=== PATIENT | female | born 1935 | race Caucasian/White ===

== ENCOUNTER 2018-06-06 11:34 | Inpatient (IN) ==
[2018-06-06] MEDS ORDERED: Mag Hydrox/Al Hydrox/Simeth 30 ML UDC PO PRN (18:38)
[2018-06-06] MEDS ORDERED: *HR* Dextrose 50 % in Water (Syg) 50 ML SYRINGE IVP PRN (19:41)
[2018-06-06] MEDS ORDERED: D5% in Water 1,000 ML IVC PRN (19:41)
[2018-06-06] MEDS ORDERED: Dextrose Gel 15 GM/37.5 ML TUBE PO PRN ×2 (19:41)
[2018-06-06] MEDS ORDERED: Insulin DETEMIR 100 UNIT/ML per UNIT SQ ONE (21:00)
[2018-06-06] MEDS: Insulin LISPRO 300 UNITS/3 ML VIAL SQ SCH (22:18)
[2018-06-07] MEDS: cloNIDine HCl 0.1 MG TABLET PO PRN (00:16)
[2018-06-07] MEDS: *HR* Enoxaparin 40 MG/0.4 ML SYRINGE SQ SCH (06:03)
[2018-06-07 06:25] LABS: Basophils % 0.3 %; Eosinophils # 0.2 K/mcL (0.0-0.6); Eosinophils % 3.5 %; Hematocrit 29.6 % (35.3-44.9); Immature Granulocytes % 0.3 % (0-4); Lymphocytes # 2.2 K/mcL (0.6-4.6); Lymphocytes % 36.7 %; Mean Corpuscular HGB Conc 33.8 g/dL (31.6-35.5); Mean Corpuscular Hemoglobin 30.4 pg (28.0-33.3); Mean Platelet Volume 10.7 fL (9.4-12.4); Monocytes # 1.2 K/mcL (0.0-1.3); Monocytes % 19.3 %; Neutrophils # 2.4 K/mcL (1.6-8.9); Platelet Count 220 K/mcL (140-400); Prothrombin Time 11.6 Seconds (9.4-12.1); Red Blood Count 3.29 M/mcL (3.82-4.97); Red Cell Distribution Width 12.3 % (11.5-14.5); Segmented Neutrophils % 39.9 %
[2018-06-07 06:38] LABS: Alanine Aminotransferase 19 Units/L (7-52); Albumin 3.2 g/dL (3.5-5.7); Albumin/Globulin Ratio 1.5 (1.1-2.2); Alkaline Phosphatase 34 Units/L (34-104); Aspartate Amino Transferase 23 Units/L (13-39); BUN/Creatinine Ratio 16 (6-26); Bilirubin,Total 0.3 mg/dL (0.3-1.0); Blood Urea Nitrogen 11 mg/dL (8-23); Calcium 8.8 mg/dL (8.6-10.3); Carbon Dioxide 28 mEq/L (23-29); Chloride 110 mEq/L (98-107); Globulin 2.2 g/dL (2.4-3.5); Glucose 64 mg/dL (70-105); Osmolality,Calculated 291 (280-300); Potassium 4.1 mEq/L (3.5-5.1); Sodium 142 mEq/L (136-145); Total Protein 5.4 g/dL (6.4-8.9); eGFR For Non-African Americans > 60 (> 60)
[2018-06-07] MEDS: Insulin LISPRO 300 UNITS/3 ML VIAL SQ SCH ×4 (08:13→21:35)
--- NOTE | 2018-06-07 12:58 | Internal Med History&Physical ---
Addendum entered and electronically signed by Julio Anne MD 06/07/18 13:50: I have personally performed a face to face evaluation on this patient. I have re viewed and agree with the care plan. History and Exam by me shows: Reviewed H&P with the patient. She was found, hypothermic, at home. However, she is unaware as to how she got outside. She has wounds on her left elbow and left lateral malleolus which will need care. She has a history of fall, outside of working a lot, about 4 years ago which required right total hip replacement. 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 She states that her mother had the same problem. She denies significant nephropathy or peripheral neuropathy although she is just now beginning to get some numbness in her feet. She is followed with an eye center in [place] for 10 years but they offer no hope of surgical or medical change. She had a "scan" of her heart which was normal at the hospital from which she was transferred. She is greatly encouraged by this. She lives 1 mile from her son and several miles from her daughter but otherwise lives alone. Her neighbor brings her warm food once a day. In addition, she has another person stops by daily to check her sugar and give her her insulin injection, depending on sliding scale. She is unable to check her sugar, on her own. She is status post total hysterectomy, as above. 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 Patient has no complaint of chest discomfort, dyspnea, orthopnea, breathing p roblems, palpitations, nausea or vomiting, constipation or diarrhea, other changes in bowel habits, heartburn, difficulty with urination, kidney problems or kidney stones, fevers chills or sweats, rash or itching, seizures, headache or lightheadedness, heat or cold intolerance, blood problems or anemia, or other new complaints, except as mentioned above. Review of systems is otherwise negative. Examination: (Except as mentioned above): General: In no apparent distress, alert and oriented 3. Head: Atraumatic and normocephalic. Eyes: Extraocular muscles are intact, pupils equal round and reactive to light and accommodation. It should be noted that she has inability to fingers at about 1 foot. Sclerae anicteric. Ears: External ears are normal to inspection and hearing is grossly normal. Nose: Patent without lesion noted. Mouth: No intraoral lesions seen. She is edentulous with upper and lower full plate dentures. Neck: Supple with trachea midline. There is no thyromegaly or adenopathy and carotids are 2+ without bruit heard. Respiratory: No use of accessory muscles. Lungs are clear throughout. Normal airflow. 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 Cardiovascular: Regular rate and rhythm without murmur appreciated. Abdomen: Bowel sounds are normal. No hepatosplenomegaly masses or tenderness. Obese and therefore difficult to palpate deeply. Extremities: No cyanosis clubbing or edema. Neurological: A and O 3. Cranial nerves II through XII are intact. No focal deficits and no abnormal movements or postures. Skin: Warm and non-diaphoretic with no lesions noted. Breasts, pelvic and rectal: Not examined. I am concerned about safety at home. Apparently, she has not been able to modify her house, adequately. Therapy is aware of the situation and will assess her for safety, considering whether she needs 24/7 attendance or even fpc placement. Original Note: Date of Encounter: 06/07/18 Time of Encounter: 12:56 Assessment and Plan (1) Falls Current visit: Yes Status: Acute PT and OT to eval and treat. Will follow progress. Qualifiers: Encounter type: sequela Qualified Code(s): W19.XXXS - Unspecified fall, sequela (2) Anemia Current visit: Yes Status: Acute Hemoglobin 10.0. Will continue to try and labs. Qualifiers: Anemia type: unspecified type Qualified Code(s): D64.9 - Anemia, unspecified (3) Diabetes mellitus Current visit: Yes Status: Chronic Controlled with insulin. Monitor fingerstick blood sugar. Continue diabetic diet. Qualifiers: Diabetes mellitus type: type 2 Diabetes mellitus intermediate designer insulin use: with intermediate designer use Diabetes mellitus complication status: with ophthalmic complications Diabetes mellitus complication detail: with diabetic retinopathy Diabetic retinopathy severity: with unspecified retinopathy severity Diabetes mellitus macular edema: macular edema presence unspecified Laterality: bilateral Qualified Code(s): E11.319 - Type 2 diabetes mellitus with unspecified diabetic retinopathy without macular edema; Z79.4 - [facility] (current) use of insulin Internal Medicine - H&P: HPI Admitted From: Hospital to Hospital Transfer Plans for Post Hospital Care: Home History of present illness: Ms. Coto is a 83 year old female admitted to rehab unit from [facility]. Patient presented to [facility] after falling outside of her home in becoming hypothermic. Patient does not recall what led to the fall. Patient is legally blind due to diabetic retinopathy. She follows up with [facility] [facility] regularly. Patient lives at home alone that has a son that lives nearby. Patient is diabetic and takes insulin. Had right hip fracture in 2013 after a fall. Complains of slight neck and right shoulder pain. Denies fever, chills, nausea vomiting or diarrhea. Denies shortness of breath or chest pain. Maintaining appetite and hydration states bowels moved moved yesterday. Past Med Surg Social Fam HX - Past Medical History Medical history: diabetes, hyperlipidemia, hypertension Additional medical history: legally blind Psychiatric history: anxiety, depression - Past Surgical History Surgical History: hysterectomy Additional surgical history: RTHR - Social History Smoking Status: Never smoker Smokeless Tobacco Status: No Alcohol use: none Drug use: none - Family History Mother Adopted: No Family Member Ethnicity: Non- Living Status: Hx Family Cardiac Disorders: Yes Hx Family Respiratory Disorders: No Hx Family Cancer: No Hx Family GI Disorders: No Hx Family Endocrine Disorder: Yes (DM ) Hx Family Neuromuscular Disorders: No Hx Family Neurologic Disorders: No Hx Family HEENT Disorders: No Hx Family Autoimmune Disorders: No Father Adopted: No Family Member Ethnicity: Non- Living Status: Hx Family Cardiac Disorders: No Hx Family Respiratory Disorders: Yes (emphysema) Hx Family Cancer: No Hx Family GI Disorders: No Hx Family Endocrine Disorder: No Hx Family Neuromuscular Disorders: No Hx Family Neurologic Disorders: No Hx Family HEENT Disorders: No Hx Family Autoimmune Disorders: No Internal Medicine - H&P: Meds Brimonidine Tartrate/Timolol [Combigan 0.2%-0.5% Eye Drops] 1 drop BOTH EYES BID 04/17/17 [History] Cyclosporine [Restasis] 1 drop BOTH EYES BID 04/17/17 [History] Allergy/AdvReac Type Severity Reaction Status Date / Time Sulfa (Sulfonamide AdvReac Gastrointestinal Verified 04/16/17 10:47 Antibiotics) Upset All Systems PM: A 10-system review of systems was performed and is negative for pertinent findings except as documented above in the HPI. - Constitutional Constitutional: no chills, no fever(s), no night sweats - EENT Eyes: no change in vision, no discharge, no pain, no photophobia Ears: no ear discharge, no ear pain, no tinnitus Nose, mouth and throat: no dysphagia, no nasal discharge, no neck pain, no sore throat - Cardiovascular Cardiovascular ROS IM: no chest pain, no diaphoresis, no dyspnea, no l ightheadedness, no palpitations, no syncope - Respiratory Respiratory: no cough, no dyspnea, no wheezing, no excessive phlegm production - Gastrointestinal Gastrointestinal: no abdominal pain, no diarrhea, no hematemesis, no hematochezia, no melena, no nausea, no vomiting - Genitourinary Genitourinary: no change in urinary stream, no dysuria, no flank pain, no hematuria - Musculoskeletal Musculoskeletal ROS IM: no numbness, no tingling - Integumentary Integumentary IM: no rash, no unusual bruising - Neurological Neurological ROS: no confusion, no convulsions, no focal weakness, no numbness, no tingling, no tremor(s) - Hematologic/Lymphatic Hematologic/Lymphatic: no easy bruising - Constitutional Vitals: Temp Pulse Resp BP Pulse Ox 97.5 F L 65 14 162/68 98 06/07/18 08:00 06/07/18 11:03 06/07/18 11:03 06/07/18 11:03 06/07/18 11:03 General appearance: Present: cooperative, A&O X 3, pleasant, no acute distress, answers questions appropriately Exam: legally blind - Head Head exam: Present: atraumatic, normocephalic - Eye Eye exam: Present: PERRL, conjuntiva pink, sclera anicteric Pupils: Present: PERRL - Neck Neck exam general surgery: Present: supple, trachea midline. Absent: lymphadenopathy - Respiratory Respiratory exam: Present: CTAB. Absent: accessory muscle use, rales, rhonchi, wheezes - Cardiovascular Cardiovascular exam: Present: RRR, +S1, +S2. Absent: diastolic murmur, gallop, rubs, systolic murmur - GI/Abdominal GI/Abdominal exam: Present: normal bowel sounds, soft, no peritoneal signs. Absent: distended, tenderness - Extremities Exam Extremities exam: Present: warm, radial pulses palpable and symmetrical. Absent: calf tenderness, cyanotic, pedal edema - Neurological Exam Neurological exam: Present: CN II-XII intact, oriented X3, no focal deficits. Absent: pronater drift, facial droop, speech deficit - Skin Skin exam: Present: dry, intact Additional comments: Left lateral malleolus left elbow wounds. Healing. No drainage. Dressings dry and intact Internal Med - H&P Results - Labs CBC & Chem 7: 06/07/18 05:55 06/07/18 05:55 Labs: Short CBC 06/07/18 Range/Units 05:55 WBC 6.0 (4.3-11.1) K/mcL Hgb 10.0 L (11.5-15.4) g/dL Hct 29.6 L (35.3-44.9) % Plt Count 220 (140-400) K/mcL Neutrophils # 2.4 (1.6-8.9) K/mcL BMP 06/07/18 05:55 Sodium 142 Potassium 4.1 Chloride 110 H Carbon Dioxide 28 BUN 11 Creatinine 0.67 Glucose 64 L Calcium 8.8 Liver Function 06/07/18 Range/Units 05:55 Total Bilirubin 0.3 (0.3-1.0) mg/dL AST 23 (13-39) Units/L ALT 19 (7-52) Units/L Alkaline Phosphatase 34 (34-104) Units/L Albumin 3.2 L (3.5-5.7) g/dL
[2018-06-07] MEDS: Insulin DETEMIR 100 UNIT/ML X5UNITS SQ SCH (21:35)
[2018-06-08] MEDS: *HR* Enoxaparin 40 MG/0.4 ML SYRINGE SQ SCH (04:40)
[2018-06-08] MEDS: Insulin LISPRO 300 UNITS/3 ML VIAL SQ SCH ×4 (08:11→22:40)
--- NOTE | 2018-06-08 10:31 | Internal Med Progress Note ---
Addendum entered and electronically signed by Julio Anne MD 06/08/18 11:20: I have personally performed a face to face evaluation on this patient. I have r eviewed and agree with the care plan. History and Exam by me shows: Patient is very teary-eyed and upset because she had a bad night, last night. She states that she had to urinate frequently and this has made her sleepy and tired, today. She feels like she cannot perform well in therapy. She has been told by staff that this is diabetes and its complications and she is depressed because she cannot care for herself, the way she has. Talked at length and I encouraged her to do the best she can utilize her body is not as young as it used to be and that she must have a positive attitude in order to have her best chances. We discussed living situations with both her daughter and son in [facility] her are good. We told her that we would continue with therapy and that we would work with social service to try to find the best home-going situation for her. She seemed to have a better attitude at the end of this discussion. We will discuss with staff in terms of progress and may need to consider psychology referral. It has been a day or 2 since her last bowel movement. We encouraged her to keep track of this and let us know if she has not had a bowel movement. We will not use an additional laxative, at this point. Discussed care with other providers and/or nursing. Patient has no complaint of chest discomfort, dyspnea, orthopnea, palpitations, nausea or vomiting, constipation or diarrhea, other changes in bowel habits, difficulty with urination, rash or itching, or other new complaints, except as mentioned above. Review of systems is otherwise negative. Examination: (Except as mentioned above): General: In no apparent distress. Alert and oriented 3. Nondiaphoretic. Head: Atraumatic and normocephalic. Respiratory: No use of accessory muscles. Lungs are clear throughout. Normal airflow. Cardiovascular: Regular rate and rhythm without murmur appreciated. Abdomen: Bowel sounds are normal. No hepatosplenomegaly mass or tenderness appreciated. Obese and therefore difficult to palpate deeply. Extremities: No cyanosis clubbing or edema. Skin: Warm and non-diaphoretic with no new lesions noted. Original Note: Date of Encounter: 06/08/18 Time of Encounter: 10:30 - Assessment and plan (1) Diabetes mellitus Current Visit: Yes Status: Chronic Assessment and plan: No acute issues. Patient's glucose was a little elevated at admission but has been fairly well-controlled with fingersticks since her admission day. We will continue with sliding scale insulin and current medication regimen. We will continue with current plan of care Qualifiers: Diabetes mellitus type: type 2 Diabetes mellitus manager intermediate insulin use: with manager intermediate use Diabetes mellitus complication status: with ophthalmic complications Diabetes mellitus complication detail: with diabetic retinopathy Diabetic retinopathy severity: with unspecified retinopathy severity Diabetes mellitus macular edema: macular edema presence unspecified Laterality: bilateral Qualified Code(s): E11.319 - Type 2 diabetes mellitus with unspecified diabetic retinopathy without macular edema; Z79.4 - [facility] (2) Hip fracture Current Visit: Yes Status: Chronic Assessment and plan: No acute issues at this time. Patient denies any pain to her hip. Patient with history of hip replacement in 2013 and has had poor gait and balance, resulting in several falls at home. Patient continues with poor endurance. We will continue with physical therapy Qualifiers: Encounter type: subsequent encounter Fracture type: closed Laterality: right Fracture healing: with routine healing Qualified Code(s): S72.001D - Fracture of unspecified part of neck of right femur, subsequent encounter for closed fracture with routine healing (3) Hypertensive urgency Current Visit: Yes Status: Acute Assessment and plan: Patient continues to have slightly elevated systolic blood pressure was systolic at 165-175. We will start on low-dose Cozaar and continue to monitor. - Time Spent With Patient less than 15 minutes - Subjective Interval history: Patient appears relaxed and currently denies any discomforts or shortness of breath. Patient states that physical therapy is progressing well for her. - Constitutional Vitals: Temp Pulse Resp BP Pulse Ox 98.6 F 73 16 174/86 98 06/08/18 06:59 06/08/18 06:59 06/08/18 06:59 06/08/18 06:59 06/08/18 06:59 General appearance: Present: cooperative, A&O X 3, pleasant, no acute distress, answers questions appropriately - Head Head exam: Present: atraumatic, normocephalic - Eye Eye exam: Present: PERRL, conjuntiva pink, sclera anicteric Pupils: Present: PERRL Additional comments: Patient is legally blind - Neck Neck exam general surgery: Present: supple, trachea midline. Absent: lymphadenopathy - Respiratory Respiratory exam: Present: CTAB. Absent: accessory muscle use, rales, rhonchi, wheezes Additional comments: Lungs are clear throughout upper houser with diminished bases. Respiratory effort appears relaxed - Cardiovascular Cardiovascular exam: Present: RRR, +S1, +S2. Absent: diastolic murmur, gallop, rubs, systolic murmur - GI/Abdominal GI/Abdominal exam: Present: normal bowel sounds, soft, no peritoneal signs. Absent: distended, tenderness - Extremities Exam Extremities exam: Present: warm, radial pulses palpable and symmetrical. Absent: calf tenderness, cyanotic, pedal edema - Neurological Exam Neurological exam: Present: CN II-XII intact, oriented X3, no focal deficits. Absent: pronater drift, facial droop, speech deficit - Skin Skin exam: Present: dry, intact Internal Medicine: Result - Labs CBC & Chem 7: 06/07/18 05:55 06/07/18 05:55 - ABG Interpretation ABG results: PT/INR, D-dimer PT 11.6 Seconds (9.4-12.1) 06/07/18 05:55 Consult Discharge Plan - Plan Referrals: Heriberto Brandon MD [Primary Care Provider] -
[2018-06-08 17:22] LABS: Bilirubin,Urine Negative (Negative); Blood,Urine Trace-lysed (Negative); Clarity,Urine Clear (Clear); Color,Urine Yellow (Yellow); Glucose,Urine (UA) 100 mg/dL (Normal); Ketones,Urine Negative (Negative); Leukocyte Esterase,Urine Small (Negative); Nitrite,Urine Negative (Negative); Protein,Urine 100 mg/dL (Neg-Trace); Urobilinogen,Urine Normal (Normal)
[2018-06-08 17:27] LABS: Squamous Epithelial Cell,Urine Few per lpf (None-Few)
[2018-06-08] MEDS: Insulin DETEMIR 100 UNIT/ML X5UNITS SQ SCH (22:40)
[2018-06-08] MEDS: cloNIDine HCl 0.1 MG TABLET PO PRN (22:41)
[2018-06-09] MEDS: *HR* Enoxaparin 40 MG/0.4 ML SYRINGE SQ SCH (06:06)
[2018-06-09] MEDS: Insulin LISPRO 300 UNITS/3 ML VIAL SQ SCH ×4 (08:48→20:44)
--- NOTE | 2018-06-09 10:42 | Internal Med Progress Note ---
Addendum entered and electronically signed by Julio Anne MD 06/09/18 12:39: I have personally performed a face to face evaluation on this patient. I have r eviewed and agree with the care plan. History and Exam by me shows: Patient has no new complaints. She denies urinary symptoms. She feels like she is progressing well with therapy. Discussed care with other providers and/or nursing. Patient has no complaint of chest discomfort, dyspnea, orthopnea, palpitations, nausea or vomiting, constipation or diarrhea, other changes in bowel habits, difficulty with urination, rash or itching, or other new complaints, except as mentioned above. Review of systems is otherwise negative. Examination: (Except as mentioned above): General: In no apparent distress. Alert and oriented 3. Nondiaphoretic. Head: Atraumatic and normocephalic. Respiratory: No use of accessory muscles. Lungs are clear throughout. Normal airflow. Cardiovascular: Regular rate and rhythm without murmur appreciated. Abdomen: Bowel sounds are normal. No hepatosplenomegaly mass or tenderness appreciated. Obese and therefore difficult to palpate deeply. Patient is examined upright in chair and this also limits exam. Extremities: No cyanosis clubbing or edema. Skin: Warm and non-diaphoretic with no new lesions noted. I discussed at length with patient and daughter, with the patient's permission. The plan is for discharge early to mid next week but she will need supervision constantly because of her fall risk and decreased vision. Both daughter and patient seemed fine with this. oil well services superintendent aware and will look at placement I told daughter that we would probably not have urine culture results back until tomorrow or more likely Tuesday and then these would be addressed, if there is growth. She was recently treated for UTI. Combigan and Restasis eyedrops are used by patient at home but these are not available through [facility]. Social service and nursing will try to arrange a family member or friend to bring from home. Original Note: Date of Encounter: 06/09/18 Time of Encounter: 10:40 - Assessment and plan (1) Diabetes mellitus Current Visit: Yes Status: Chronic Assessment and plan: No acute issues. Patient's glucose continues to have slight elevation during the evening hours greater than 200. Taking for sliding scale coverage and evaluate patient's medication regimen. Qualifiers: Diabetes mellitus type: type 2 Diabetes mellitus terminal clerk insulin use: with terminal clerk use Diabetes mellitus complication status: with ophthalmic complications Diabetes mellitus complication detail: with diabetic retinopathy Diabetic retinopathy severity: with unspecified retinopathy severity Diabetes mellitus macular edema: macular edema presence unspecified Lat erality: bilateral Qualified Code(s): E11.319 - Type 2 diabetes mellitus with unspecified diabetic retinopathy without macular edema; Z79.4 - [facility] use of [facility] (2) Hip fracture Current Visit: Yes Status: Chronic Assessment and plan: No acute issues at this time. Patient denies any pain to her hip. Patient with history of hip replacement in 2013 and has had poor gait and balance, resulting in several falls at home. Patient continues with poor endurance. We will continue with physical therapy Qualifiers: Encounter type: subsequent encounter Fracture type: closed Laterality: right Fracture healing: with routine healing Qualified Code(s): S72.001D - Fracture of unspecified part of neck of right femur, subsequent encounter for closed fracture with routine healing (3) Hypertensive urgency Current Visit: Yes Status: Acute Assessment and plan: Patient blood pressure has been slightly elevated. Patient was started on Cozaar and today her blood pressure appears better controlled. We will continue to monitor - Time Spent With Patient less than 15 minutes - Subjective Interval history: Patient appears relaxed and currently denies any discomforts or shortness of breath. Patient states that physical therapy is progressing well for her. Patient noted to be legally blind. - Constitutional Vitals: Temp Pulse Resp BP Pulse Ox 97.7 F 64 16 146/68 94 06/09/18 06:00 06/09/18 06:00 06/09/18 06:00 06/09/18 06:00 06/09/18 06:00 General appearance: Present: cooperative, A&O X 3, pleasant, no acute distress, answers questions appropriately - Head Head exam: Present: atraumatic, normocephalic - Eye Eye exam: Present: PERRL, conjuntiva pink, sclera anicteric Pupils: Present: PERRL Additional comments: Legally blind - Neck Neck exam general surgery: Present: supple, trachea midline. Absent: lymphadenopathy - Respiratory Respiratory exam: Present: CTAB. Absent: accessory muscle use, rales, rhonchi, wheezes - Cardiovascular Cardiovascular exam: Present: RRR, +S1, +S2. Absent: diastolic murmur, gallop, rubs, systolic murmur - GI/Abdominal GI/Abdominal exam: Present: normal bowel sounds, soft, no peritoneal signs. Absent: distended, tenderness - Extremities Exam Extremities exam: Present: warm, radial pulses palpable and symmetrical. Absent: calf tenderness, cyanotic, pedal edema - Neurological Exam Neurological exam: Present: CN II-XII intact, oriented X3, no focal deficits. Absent: pronater drift, facial droop, speech deficit - Skin Skin exam: Present: dry, intact Internal Medicine: Result - Labs CBC & Chem 7: 06/07/18 05:55 06/07/18 05:55 Labs: Urine 06/08/18 Range/Units 17:00 Urine Color Yellow (Yellow) Urine Clarity Clear (Clear) Urine pH 6.0 (5.0-8.0) pH Units Ur Specific [place] 1.020 (1.010-1.025) Urine Protein 100 H (Neg-Trace) mg/dL Urine Glucose (UA) 100 H (Normal) mg/dL - ABG Interpretation ABG results: PT/INR, D-dimer PT 11.6 Seconds (9.4-12.1) 06/07/18 05:55 Consult Discharge Plan - Plan Referrals: Heriberto Brandon MD [Primary Care Provider] -
[2018-06-09] MEDS: Insulin DETEMIR 100 UNIT/ML X5UNITS SQ SCH (20:45)
[2018-06-09] MEDS: Acetaminophen 325 MG TABLET PO PRN (23:44)
[2018-06-10] MEDS: *HR* Enoxaparin 40 MG/0.4 ML SYRINGE SQ SCH (05:00)
[2018-06-10] MEDS: Insulin LISPRO 300 UNITS/3 ML VIAL SQ SCH ×4 (07:34→20:31)
--- NOTE | 2018-06-10 11:10 | Internal Med Progress Note ---
Date of Encounter: 06/10/18 Time of Encounter: 14:40 - Subjective Interval history: - Assessment and plan (1) Diabetes mellitus Current Visit: Yes Status: Chronic Assessment and plan: No acute issues. better control Taking for sliding scale coverage and evaluate patient's medication regimen. Qualifiers: Diabetes mellitus type: type 2 Diabetes mellitus group home insulin use: with group home use Diabetes mellitus complication status: with ophthalmic complications Diabetes mellitus complication detail: with diabetic retinopathy Diabetic retinopathy severity: with unspecified retinopathy severity Diabetes mellitus macular edema: macular edema presence unspecified Laterality: bilateral Qualified Code(s): E11.319 - Type 2 diabetes mellitus with unspecified diabetic retinopathy without macular edema; Z79.4 - penitentiary (current) use of insulin (2) Hip fracture Current Visit: Yes Status: Chronic Assessment and plan: No acute issues at this time. Patient denies any pain to her hip. Patient with history of hip replacement in 2013 and has had poor gait and balance, resulting in several falls at home. Patient continues with poor endurance. We will continue with physical therapy Qualifiers: Encounter type: subsequent encounter Fracture type: closed Laterality: right Fracture healing: with routine healing Qualified Code(s): S72.001D - Fracture of unspecified part of neck of right femur, subsequent encounter for closed fracture with routine healing (3) Hypertensive urgency Current Visit: Yes Status: Acute Assessment and plan: Patient blood pressure appears better controlled. We will continue to monitor - Time Spent With Patient less than 15 minutes - Subjective Interval history: No acute events overnight Patient is legally blind. - Constitutional General appearance: Present: cooperative, A&O X 3, pleasant, no acute distress, responsive - Head Head exam: Present: atraumatic, normocephalic - Eye Eye exam: Present: PERRL, conjuntiva pink, sclera anicteric Pupils: Present: PERRL Additional comments: Legally blind - Neck Neck exam general surgery: Present: supple, trachea midline. Absent: lymphadenopathy - Respiratory Respiratory exam: Present: CTAB. Absent: accessory muscle use, rales, rhonchi, wheezes - Cardiovascular Cardiovascular exam: Present: RRR, +S1, +S2. Absent: diastolic murmur, gallop, rubs, systolic murmur - GI/Abdominal GI/Abdominal exam: Present: normal bowel sounds, soft, no peritoneal signs. Absent: distended, tenderness - Extremities Exam Extremities exam: Present: warm, radial pulses palpable and symmetrical. Absent: calf tenderness, cyanotic, pedal edema - Neurological Exam Neurological exam: Present: CN II-XII intact, oriented X3, no focal deficits. Absent: pronater drift, facial droop, speech deficit - Skin Skin exam: Present: dry, intact - Constitutional Vitals: Temp Pulse Resp BP Pulse Ox 98.1 F 71 16 113/67 95 06/10/18 09:40 06/10/18 09:40 06/10/18 09:40 06/10/18 09:40 06/10/18 09:40 General appearance: Present: cooperative, A&O X 3, pleasant, no acute distress, answers questions appropriately Internal Medicine: Result - Labs CBC & Chem 7: 06/07/18 05:55 06/07/18 05:55 - ABG Interpretation ABG results: PT/INR, D-dimer PT 11.6 Seconds (9.4-12.1) 06/07/18 05:55 Consult Discharge Plan - Plan Referrals: Heriberto Brandon MD [Primary Care Provider] -
[2018-06-10] MEDS: Insulin DETEMIR 100 UNIT/ML X5UNITS SQ SCH (20:30)
[2018-06-11] MEDS: cloNIDine HCl 0.1 MG TABLET PO PRN (01:40)
[2018-06-11] MEDS: *HR* Enoxaparin 40 MG/0.4 ML SYRINGE SQ SCH (05:54)
[2018-06-11] MEDS: Insulin LISPRO 300 UNITS/3 ML VIAL SQ SCH ×4 (08:05→21:06)
--- NOTE | 2018-06-11 15:04 | Internal Med Progress Note ---
Date of Encounter: 06/11/18 Time of Encounter: 13:40 - Subjective Interval history: - Assessment and plan (1) Diabetes mellitus Current Visit: Yes Status: Chronic Assessment and plan: No acute issues. better control Taking for sliding scale coverage and evaluate patient's medication regimen. Qualifiers: Diabetes mellitus type: type 2 Diabetes mellitus shelter insulin use: with shelter use Diabetes mellitus complication status: with ophthalmic complications Diabetes mellitus complication detail: with diabetic retinopathy Diabetic retinopathy severity: with unspecified retinopathy severity Diabetes mellitus macular edema: macular edema presence unspecified Laterality: bilateral Qualified Code(s): E11.319 - Type 2 diabetes mellitus with unspecified diabetic retinopathy without macular edema; Z79.4 - penitentiary (current) use of insulin (2) Hip fracture Current Visit: Yes Status: Chronic Assessment and plan: No acute issues at this time. Patient denies any pain to her hip. Patient with history of hip replacement in 2013 and has had poor gait and balance, resulting in several falls at home. Patient continues with poor endurance and fatigue . We will continue with physical therapy Qualifiers: Encounter type: subsequent encounter Fracture type: closed Laterality: right Fracture healing: with routine healing Qualified Code(s): S72.001D - Fracture of unspecified part of neck of right femur, subsequent encounter for closed fracture with routine healing (3) Hypertensive urgency Current Visit: Yes Status: Acute Assessment and plan: Patient blood pressure appears better controlled. We will continue to monitor - Time Spent With Patient less than 15 minutes - Subjective Interval history: No acute events overnight. Denies abd pain. Urine Culture was negative growth. Patient is legally blind. - Constitutional General appearance: Present: cooperative, A&O X 3, pleasant, no acute distress - Head Head exam: Present: atraumatic, normocephalic - Eye Eye exam: Present: PERRL, conjuntiva pink, sclera anicteric Pupils: Present: PERRL Additional comments: Legally blind - Neck Neck exam general surgery: Present: supple, trachea midline. Absent: lymphadenopathy - Respiratory Respiratory exam: Present: CTAB. Absent: accessory muscle use, rales, rhonchi, wheezes - Cardiovascular Cardiovascular exam: Present: RRR, +S1, +S2. Absent: diastolic murmur, gallop, rubs, systolic murmur - GI/Abdominal GI/Abdominal exam: Present: normal bowel sounds, soft, no peritoneal signs. Absent: distended, tenderness - Extremities Exam Extremities exam: Present: warm, radial pulses palpable and symmetrical. Absent: calf tenderness, cyanotic, pedal edema - Neurological Exam Neurological exam: Present: CN II-XII intact, oriented X3, no focal deficits. Absent: pronater drift, facial droop, speech deficit - Skin Skin exam: Present: dry, intact - Constitutional Vitals: Temp Pulse Resp BP Pulse Ox 98.7 F 65 16 131/74 96 06/11/18 09:00 06/11/18 09:00 06/11/18 09:00 06/11/18 09:00 06/11/18 09:00 General appearance: Present: cooperative, A&O X 3, pleasant, no acute distress, answers questions appropriately Internal Medicine: Result - Labs CBC & Chem 7: 06/07/18 05:55 06/07/18 05:55 - ABG Interpretation ABG results: PT/INR, D-dimer PT 11.6 Seconds (9.4-12.1) 06/07/18 05:55 Consult Discharge Plan - Plan Referrals: Heriberto Brandon MD [Primary Care Provider] -
[2018-06-11] MEDS: Insulin DETEMIR 100 UNIT/ML X5UNITS SQ SCH (21:05)
[2018-06-12] MEDS: *HR* Enoxaparin 40 MG/0.4 ML SYRINGE SQ SCH (05:58)
[2018-06-12 06:51] LABS: BUN/Creatinine Ratio 20 (6-26); Blood Urea Nitrogen 16 mg/dL (8-23); Calcium 9.2 mg/dL (8.6-10.3); Carbon Dioxide 29 mEq/L (23-29); Chloride 101 mEq/L (98-107); Glucose 135 mg/dL (70-105); Osmolality,Calculated 283 (280-300); Potassium 4.5 mEq/L (3.5-5.1); Sodium 135 mEq/L (136-145); eGFR For Non-African Americans > 60 (> 60)
[2018-06-12] MEDS: Insulin LISPRO 300 UNITS/3 ML VIAL SQ SCH ×4 (08:12→20:21)
--- NOTE | 2018-06-12 11:29 | Internal Med Progress Note ---
Addendum entered and electronically signed by Julio Anne MD 06/12/18 11:32: I have personally performed a face to face evaluation on this patient. I have r eviewed and agree with the care plan. History and Exam by me shows: Patient is without complaint. She states she moved her bowels yesterday. Per social service, we are to develop a plan for placement, soon. Discussed care with other providers and/or nursing. Patient has no complaint of chest discomfort, dyspnea, orthopnea, palpitations, nausea or vomiting, constipation or diarrhea, other changes in bowel habits, difficulty with urination, rash or itching, or other new complaints, except as mentioned above. Review of systems is otherwise negative. Examination: (Except as mentioned above): General: In no apparent distress. Alert and oriented 3. Nondiaphoretic. Head: Atraumatic and normocephalic. Respiratory: No use of accessory muscles. Lungs are clear throughout. Normal airflow. Cardiovascular: Regular rate and rhythm without murmur appreciated. Abdomen: Bowel sounds are normal. No hepatosplenomegaly mass or tenderness appreciated. Obese and therefore difficult to palpate deeply. Patient is examined upright in chair and this also limits exam. Extremities: No cyanosis clubbing or edema. Skin: Warm and non-diaphoretic with no new lesions noted. Original Note: Date of Encounter: 06/12/18 Time of Encounter: 11:27 - Assessment and plan (1) Falls Current Visit: Yes Status: Acute Assessment and plan: Continue PT and OT for deconditioning. Will follow progress. Qualifiers: Encounter type: sequela Qualified Code(s): W19.XXXS - Unspecified fall, sequela (2) Anemia Current Visit: Yes Status: Acute Assessment and plan: Stable. Last hemoglobin 10. Asymptomatic. Will monitor labs. Qualifiers: Anemia type: unspecified type Qualified Code(s): D64.9 - Anemia, unspecified (3) Diabetes mellitus Current Visit: Yes Status: Chronic Assessment and plan: Controlled with current medication. Monitor fingerstick blood sugar. Will adjust medicines as necessary. 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 Denies any complaints at this time. States b owyessenia moved yesterday. Maintaining appetite and hydration. Participating well with therapy. Patient is legally blind. Denies fever, chills, nausea vomiting or diarrhea. Denies shortness of breath or chest pain. - Constitutional Vitals: Temp Pulse Resp BP Pulse Ox 97.9 F 72 16 152/66 99 06/12/18 06:56 06/12/18 06:56 06/12/18 06:56 06/12/18 06:56 06/12/18 06:56 General appearance: Present: cooperative, A&O X 3, pleasant, no acute distress, answers questions appropriately - Head Head exam: Present: atraumatic, normocephalic - Eye Eye exam: Present: PERRL, conjuntiva pink, sclera anicteric Pupils: Present: PERRL - Neck Neck exam general surgery: Present: supple, trachea midline. Absent: lymphadenopathy - Respiratory Respiratory exam: Present: CTAB. Absent: accessory muscle use, rales, rhonchi, wheezes - Cardiovascular Cardiovascular exam: Present: RRR, +S1, +S2. Absent: diastolic murmur, gallop, rubs, systolic murmur - GI/Abdominal GI/Abdominal exam: Present: normal bowel sounds, soft, no peritoneal signs. Absent: distended, tenderness - Extremities Exam Extremities exam: Present: warm, radial pulses palpable and symmetrical. Absent: calf tenderness, cyanotic, pedal edema Additional comments: Slight non-pitting edema bilateral lower extremities - Neurological Exam Neurological exam: Present: CN II-XII intact, oriented X3, no focal deficits. Absent: pronater drift, facial droop, speech deficit - Skin Skin exam: Present: dry, intact Additional comments: Left lateral malleolus wound healing. Starting to scab over. Internal Medicine: Result - Labs CBC & Chem 7: 06/07/18 05:55 06/12/18 06:30 Labs: BMP 06/12/18 06:30 Sodium 135 L Potassium 4.5 Chloride 101 Carbon Dioxide 29 BUN 16 Creatinine 0.79 Glucose 135 H Calcium 9.2 - ABG Interpretation ABG results: PT/INR, D-dimer PT 11.6 Seconds (9.4-12.1) 06/07/18 05:55 Consult Discharge Plan - Plan Referrals: Heriberto Brandon MD [Primary Care Provider] -
[2018-06-12] MEDS: Insulin DETEMIR 100 UNIT/ML X5UNITS SQ SCH (20:20)
[2018-06-13] MEDS: *HR* Enoxaparin 40 MG/0.4 ML SYRINGE SQ SCH (05:31)
[2018-06-13] MEDS: Acetaminophen 325 MG TABLET PO PRN (09:52)
[2018-06-13] MEDS: Insulin LISPRO 300 UNITS/3 ML VIAL SQ SCH ×4 (09:53→21:55)
--- NOTE | 2018-06-13 10:43 | Internal Med Progress Note ---
Addendum entered and electronically signed by Julio Anne MD 06/13/18 15:07: I have personally performed a face to face evaluation on this patient. I have r eviewed and agree with the care plan. History and Exam by me shows: Patient is without complaint. She is more concerned about her social situation, daughter's inability care for her, and need to go to [facility]. This is planned for tomorrow. She states that she moved her bowels yesterday and only a small amount. She had a large movement, day before yesterday. Discussed care with other providers and/or nursing. Patient has no complaint of chest discomfort, dyspnea, orthopnea, palpitations, nausea or vomiting, constipation or diarrhea, other changes in bowel habits, difficulty with urination, rash or itching, or other new complaints, except as mentioned above. Review of systems is otherwise negative. Examination: (Except as mentioned above): General: In no apparent distress. Alert and oriented 3. Nondiaphoretic. Head: Atraumatic and normocephalic. Respiratory: No use of accessory muscles. Lungs are clear throughout. Normal airflow. Cardiovascular: Regular rate and rhythm without murmur appreciated. Abdomen: Bowel sounds are normal. No hepatosplenomegaly mass or tenderness appreciated. Obese and therefore difficult to palpate deeply. Patient is examined upright in chair and this also limits exam. Extremities: No cyanosis clubbing or edema. Skin: Warm and non-diaphoretic with no new lesions noted. Original Note: Date of Encounter: 06/13/18 Time of Encounter: 10:42 - Assessment and plan (1) Falls Current Visit: Yes Status: Acute Assessment and plan: Continue PT and OT for deconditioning. Will follow progress. Qualifiers: Encounter type: sequela Qualified Code(s): W19.XXXS - Unspecified fall, se quela (2) Anemia Current Visit: Yes Status: Acute Assessment and plan: Stable. Last hemoglobin 10. Asymptomatic. Will monitor labs. Qualifiers: Anemia type: unspecified type Qualified Code(s): D64.9 - Anemia, unspecified (3) Diabetes mellitus Current Visit: Yes Status: Chronic Assessment and plan: Controlled with current medication. Monitor fingerstick blood sugar. Will adjust medicines as necessary. Qualifiers: Diabetes mellitus type: type 2 Diabetes mellitus alf insulin use: with alf use Diabetes mellitus complication status: with ophthalmic complications Diabetes mellitus complication detail: with diabetic retinopathy Diabetic retinopathy severity: with unspecified retinopathy severity Diabetes mellitus macular edema: macular edema presence unspecified Laterality: bilateral Qualified Code(s): E11.319 - Type 2 diabetes mellitus with unspecified diabetic retinopathy without macular edema; Z79.4 - jail (current) use of insulin - Time Spent With Patient less than 15 minutes - Subjective Interval history: Patient sitting up and chair. Participating well with therapy. Denies any complaints at this time. States bowels moved yesterday. Maintaining appetite and hydration. Patient is legally blind. Denies fever, chills, nausea vomiting or diarrhea. Denies shortness of breath or chest pain. - Constitutional Vitals: Temp Pulse Resp BP Pulse Ox 97.2 F L 70 16 137/60 97 06/13/18 07:00 06/13/18 07:00 06/13/18 07:00 06/13/18 07:00 06/13/18 07:00 General appearance: Present: cooperative, A&O X 3, pleasant, no acute distress, answers questions appropriately - Head Head exam: Present: atraumatic, normocephalic - Eye Eye exam: Present: PERRL, conjuntiva pink, sclera anicteric Pupils: Present: PERRL - Neck Neck exam general surgery: Present: supple, trachea midline. Absent: lymphadeno alfonso - Respiratory Respiratory exam: Present: CTAB. Absent: accessory muscle use, rales, rhonchi, wheezes - Cardiovascular Cardiovascular exam: Present: RRR, +S1, +S2. Absent: diastolic murmur, gallop, rubs, systolic murmur - GI/Abdominal GI/Abdominal exam: Present: normal bowel sounds, soft, no peritoneal signs. Absent: distended, tenderness - Extremities Exam Extremities exam: Present: warm, radial pulses palpable and symmetrical. Ab sent: calf tenderness, cyanotic, pedal edema - Neurological Exam Neurological exam: Present: CN II-XII intact, oriented X3, no focal deficits. Absent: pronater drift, facial droop, speech deficit - Skin Skin exam: Present: dry, intact Internal Medicine: Result - Labs CBC & Chem 7: 06/07/18 05:55 06/12/18 06:30 - ABG Interpretation ABG results: PT/INR, D-dimer PT 11.6 Seconds (9.4-12.1) 06/07/18 05:55 Consult Discharge Plan - Plan Referrals: Heriberto Brandon MD [Primary Care Provider] -
[2018-06-13] MEDS: cloNIDine HCl 0.1 MG TABLET PO PRN (21:53)
[2018-06-13] MEDS: Insulin DETEMIR 100 UNIT/ML X5UNITS SQ SCH (21:55)
[2018-06-14] MEDS: *HR* Enoxaparin 40 MG/0.4 ML SYRINGE SQ SCH (05:36)
[2018-06-14 07:53] VITALS: BP 106/61
[2018-06-14] MEDS: Insulin LISPRO 300 UNITS/3 ML VIAL SQ SCH ×2 (08:20→12:46)
--- NOTE | 2018-06-14 09:57 | Physician Discharge Referral ---
Addendum entered and electronically signed by Julio Anne MD 06/14/18 10:24: Original Note: [facility] Referral Info Provider in Charge after Transfer: PCP Institutional Level of Care: Skilled - Diagnosis (1) Falls Priority: Primary Status: Acute (2) Anemia Priority: Secondary Status: Acute (3) Diabetes mellitus Priority: Secondary Status: Chronic Prognosis: Good Aware of Diagnosis: Patient Aware of Prognosis: Patient - Transfer Medications Home Medications: Brimonidine Tartrate/Timolol [Combigan 0.2%-0.5% Eye Drops] 1 drop BOTH EYES BID 04/17/17 [History] Cyclosporine [Restasis] 1 drop BOTH EYES BID 04/17/17 [History] Allergies/Adverse Reactions: Allergy/AdvReac Type Severity Reaction Status Date / Time Sulfa (Sulfonamide AdvReac Gastrointestinal Verified 04/16/17 10:47 Antibiotics) Upset - Respiratory Orders Smoking Cessation: Smoking cessation has been advised. For more information, call the [employer] Quit Line at [phone]. - Advance Directives Code Status: Full Code - Mobility Orders Ambulate - Rehabiliation Orders Rehab Potential: Good - Diet Orders No Concentrated Sweets CERTIFICATION: I certify that the transfer of the above named patient to an Extended Care Facility is necessary for the continuing treatment of the diagnosis listed. The above information is true and accurate reflection of patient's current condition. Confidential - Redisclosure prohibited without a patient's written consent.
--- NOTE | 2018-06-14 10:02 | Discharge Summary ---
Addendum entered and electronically signed by Julio Anne MD 06/14/18 10:24: I have personally performed a face to face evaluation on this patient. I have r eviewed and agree with the care plan. History and Exam by me shows: Patient is doing well without medical complaint. She is frustrated in that she has to go to an ECF. She is frustrated that she is cared for else and her daughter and others are not able to care for her, now. We discussed the fact that her visual problems from diabetes are at the root of her current abilities and her risk to herself. We talked about better managing her diabetes and her fall risk. Discussed care with other providers and/or nursing. Patient has no complaint of chest discomfort, dyspnea, orthopnea, palpitations, nausea or vomiting, constipation or diarrhea, other changes in bowel habits, difficulty with urination, rash or itching, or other new complaints, except as mentioned above. Review of systems is otherwise negative. Examination: (Except as mentioned above): General: In no apparent distress. Alert and oriented 3. Nondiaphoretic. Head: Atraumatic and normocephalic. Respiratory: No use of accessory muscles. Lungs are clear throughout. Normal airflow. Cardiovascular: Regular rate and rhythm without murmur appreciated. Abdomen: Bowel sounds are normal. No hepatosplenomegaly mass or tenderness appreciated. Obese and therefore difficult to palpate deeply. Patient is examined upright in chair and this also limits exam. Extremities: No cyanosis clubbing or edema. Skin: Warm and non-diaphoretic with no new lesions noted. Patient notes that she has Combigan and Restasis drops that she uses at home. However, these are not available here and family cannot bring them from home. We encouraged her to have these prior to her nursing facility, as well. Original Note: Date of Encounter: 06/14/18 Time of Encounter: 09:58 - Discharge Diagnosis (1) Falls Priority: Primary Status: Acute Comments: Continue to assist in monitor with ADLs. Ambulates with Walker. Patient is legally blind. No loss of balance recently. Qualifiers: Encounter type: sequela Qualified Code(s): W19.XXXS - Unspecified fall, sequela (2) Anemia Priority: Secondary Status: Acute Comments: Stable. This has improved. asymptomatic Qualifiers: Anemia type: unspecified type Qualified Code(s): D64.9 - Anemia, unspecified (3) Diabetes mellitus Priority: Secondary Status: Chronic Comments: Continue current medication. Monitor fingerstick blood sugar. Continue diabetic diet. Qualifiers: Diabetes mellitus type: type 2 Diabetes mellitus ocean transportation intermediary insulin use: with longterm use Diabetes mellitus complication status: with ophthalmic complications Diabetes mellitus complication detail: with diabetic retinopathy Diabetic retinopathy severity: with unspecified retinopathy severity Diabetes mellitus macular edema: macular edema presence unspecified Laterality: bilateral Qualified Code(s): E11.319 - Type 2 diabetes mellitus with unspecified diabetic retinopathy without macular edema; Z79.4 - intermediate (current) use of insulin Hospital course: Ms. Coto is a 83 year old female Discharge discussed with: patient, family, nurse, social work - Time Spent with Patient Total time spent providing and/or coordinating discharge services: Less than 30 minutes - Discharge Medications Home Medications: Brimonidine Tartrate/Timolol [Combigan 0.2%-0.5% Eye Drops] 1 drop BOTH EYES BID 04/17/17 [History] Cyclosporine [Restasis] 1 drop BOTH EYES BID 04/17/17 [History] Acetaminophen [Tylenol] 650 mg PO Q6HR PRN tablet 06/14/18 [Rx] Insulin DETEMIR [Levemir] 8 unit SQ HS [id number] 06/14/18 [Rx] Insulin LISPRO [HumaLOG] 0 units SQ HS vial 06/14/18 [Rx] Insulin LISPRO [HumaLOG] 0 units SQ TIDAC vial 06/14/18 [Rx] Losartan [Cozaar] 25 mg PO DAILY tablet 06/14/18 [Rx] cloNIDine HCl [CloNIDine HCl] 0.1 mg PO Q6HR PRN tablet 06/14/18 [Rx] Allergies/Adverse Reactions: Allergy/AdvReac Type Severity Reaction Status Date / Time Sulfa (Sulfonamide AdvReac Gastrointestinal Verified 04/16/17 10:47 Antibiotics) Upset Date of admission: 06/06/18 17:48 Primary care physician: Heriberto Brandon MD Consults: 06/06/18 18:20 Consult to Occupational Therapy [CONS] Routine Comment: Evaluate, develop and implement POC Reason for Consult: eval Does patient have active BEDREST order?: No Is patient medically & hemodynamically stable?: Yes Consult to Physical Therapy [CONS] Routine Comment: Evaluate, develop and implement POC Reason for Consult: eval Does patient have active BEDREST order?: No Is patient medically & hemodynamically stable?: Yes Consult to Recreational Therapy [CONS] Routine Comment: Evaluate, develop and implement POC Consult to Medicare Specialist [CONS] Routine Reason for SW Consult: eval 06/06/18 18:35 Consult to Physical Medicine/Rehab [CONS] Routine Reason for Consult: eval Call Completed: Yes 06/07/18 11:05 Consult to Wound Care [CONS] Routine Reason for Consult: skin tear to left elbow skin abrasion to left ankle Time Notified: 11:04 Call Completed: Yes 06/09/18 10:53 Consult to Psychology [CONS] Routine Consulting Provider: Julio Anne Reason for Consult: depression, coping Time Notified: 10:54 Call Completed: No Discharging clinician: Julio Anne Anticipated date of discharge: 06/14/18 - Constitutional Vitals: Temp Pulse Resp BP Pulse Ox 98.0 F 80 16 106/61 98 06/14/18 07:51 06/14/18 07:51 06/14/18 07:51 06/14/18 07:51 06/14/18 07:51 General appearance: Present: cooperative, A&O X 3, pleasant, no acute distress, answers questions appropriately Exam: legally blind - Head Head exam: Present: atraumatic, normocephalic - Eye Eye exam: Present: PERRL, conjuntiva pink, sclera anicteric Pupils: Present: PERRL - Neck Neck exam general surgery: Present: supple, trachea midline. Absent: lymphadenopathy - Respiratory Respiratory exam: Present: CTAB. Absent: accessory muscle use, rales, rhonchi, wheezes - Cardiovascular Cardiovascular exam: Present: RRR, +S1, +S2. Absent: diastolic murmur, gallop, rubs, systolic murmur - GI/Abdominal GI/Abdominal exam: Present: normal bowel sounds, soft, no peritoneal signs. Absent: distended, tenderness - Extremities Exam Extremities exam: Present: warm, radial pulses palpable and symmetrical. Absent: calf tenderness, cyanotic, pedal edema - Neurological Exam Neurological exam: Present: CN II-XII intact, oriented X3, no focal deficits. Absent: pronater drift, facial droop, speech deficit - Skin Skin exam: Present: dry, intact - Patient Status Disposition: Transfer SNF Condition: Good Functional capacity at discharge: uses cane/walker Overall status at discharge: patient is progressing back to baseline - Discharge Instructions Follow Up With: Heriberto Brandon MD [Primary Care Provider] - - Diet and Activity Activity: as per physical therapy Diet: diabetic diet
== END 2018-06-14 15:10 | DRG 561 ==
LOC: INPGRE 17:48